=== PATIENT | male | born 1955 | race Caucasian/White ===

== ENCOUNTER → 2023-05-01 13:25 | Outpatient (REF) | payer MEDICARE, OTHER, SELFPAY | LOC: RCS 13:25 | PROVIDERS: ATTENDING PHYSICIAN Nurse Practitioner Family | DX: I10 Essential (primary) hypertension (principal); N52.9 Male erectile dysfunction, unspecified | CPT/HCPCS: 93005 ==

== ENCOUNTER → 2024-09-16 11:34 | Outpatient (REF) | payer MEDICARE, OTHER, SELFPAY | LOC: RCS 11:34 | PROVIDERS: ATTENDING PHYSICIAN Nurse Practitioner Family | DX: I10 Essential (primary) hypertension (principal); R00.2 Palpitations; M54.50 Low back pain, unspecified | CPT/HCPCS: 72110; 93005; 93306 ==